=== PATIENT | female | born 2000 | race Caucasian/White ===

== ENCOUNTER 2019-01-17 17:47 | Emergency (ER) | payer BC ==
--- OUTSIDE RECORDS SUMMARY | 2019-01-17 17:49 | XMS REPORT | Summary of Care ---
:2000 Author Organization [facility] Address [address] [place] [phone] Encounter HQ Martine_ephraim(ESTEVAN) [id number] Date(s): 07/01/17 - 07/01/[address] Discharge Disposition: Home or Self Care Attending Physician: Yesenia Phoenix MD Referring Physician: Yesenia Phoenix MD Vital Signs Most recent to oldest [Reference Range]: 1 Blood Pressure [90-140/60-90 mmHg] 118/76 mmHg (07/01/17 1:20 PM) Respiratory Rate [14-20 BRMIN] 16 BRMIN (07/01/17 1:20 PM) Peripheral Pulse Rate [60-100 bpm] 93 bpm (07/01/17 1:20 PM) Weight 47.727 kg (07/01/17 1:20 PM) Problem List Condition Effective Dates Status Health Status Informant Cerebral palsy(Confirmed) Active Autism spectrum(Confirmed) Active Seizures(Confirmed) Active Stroke(Confirmed) Active Allergies, Adverse Reactions, Alerts Substance Reaction Severity Status NKDA Active Medications multivitamin 2 tabs, PO, Daily, 0 Refill(s) Start Date: 07/01/17 Status: Ordered Results No data available for this section Immunizations No data available for this section Procedures Procedure Date Related Diagnosis Body Site Creation of POLICE CHIEF DEPUTY shunt 1999 Craniotomy Social History Social History Type Response Substance Abuse Use: None. Sexual Sexually active: No. Exercise Exercise duration: 0. Employment/School Highest education level: Other.1 Alcohol Never Smoking Status Never smoker; Exposure to Tobacco Smoke None; Cigarette Smoking Last 365 Days No; Reg Smoking Cessation Counseling No 1patient still in school(special ED) Assessment and Plan No data available for this section
--- OUTSIDE RECORDS SUMMARY | 2019-01-17 17:49 | XMS REPORT | Continuity of Care Document ---
:2000 Author Organization Interface Problems Problem Status Onset Classification Date Comments Source Date Reported 6 MONTH FOLLOW Active [facility] UP 8 EAVL TRANSITION Active [facility] TO ADULT CLINIC 8 REFER BY Localization-re 03/11/2018 [facility] late (partial) [address] [place] [address] Center epilepsy and epileptic syndromes with complex partial seizures, intractable, without status epilepticus G40.[address] LOCAL-REL Active [address] S73.004A - Active [facility] UNSPECIFIED 7 [place] DISLOCATION OF RI F/U Active [facility] 7 6 MONTHS Active [facility] 7 EPILEPSY Active [address] Cerebral palsy Active Problem 03/11/2018 [facility], [facility], [facility] [place] Autism spectrum Active Problem 03/11/2018 [facility] Active Problem 03/11/2018 [facility], [facility], [facility] [place] Stroke Active Problem 03/11/2018 [facility], [facility], [facility] [place] LOCAL-REL Active [facility] SEIZ, Medications Medication Details Route Status Patient Ordering Order Source Instructions Provider Date FYCOMPA 4 mg, PO, Active 02/28[facility] Bedtime, 0 2017 Refill(s) norethindrone 0.35 mg=1 tab, Active 02/28/ [facility] 0.35 mg oral PO, Daily, # 30 2018 tablet tab, 0 Refill(s) multivitamin 2 tabs, PO, [facility] Refill(s) Ondansetron 4 mg, 2 mL, Inactive 02/01/ [facility] Route: IVP, Drug 2017 Medical form: INJ, ONCE, Center Dosing Weight 47.727, kg, PRN Nausea & Vomiting, Start date: 02/01/17 10:10:00 CDTNotes: (Same as: Zofran) MEDICATION WASTE Product Size: 4 mg Product Wasted: ___ mg Naloxone 0.4 mg, 1 mL, Inactive [facility] Route: IVP, Drug 2017 Medical form: INJ, Center Q2MIN, Dosing Weight 47.727, kg, PRN Narcotic Reversal, Start date: 02/01/17 10:10:00 CDT, Duration: 8 doses or times, Stop date: Limited # of timesNotes: Same as Narcan Flumazenil 0.2 mg, Route: Inactive [facility] IVP, PRN, Dosing 2017 Medical Weight 47.727, Center kg, PRN Benzodiazepine Reversal, Initial dose, Start date: 02/01/17 10:10:00 CDT, Duration: 30 day, Stop date: 03/03/17 10:09:00 CDT Hydromorphone 0.2 mg, Route: Inactive [facility] IVP, Q5Min, 2017 Medical Dosing Weight Center 47.727, kg, PRN Pain Score 7-10, Start date: 02/01/17 10:10:00 CDT, Duration: 4 doses or times, Stop date: Limited # of times Oxycodone 2.5 mg, 2.5 mL, Inactive [facility] Route: PO, Drug 2016 Medical form: LIQ, Q4H, Center Dosing Weight 47.727, kg, PRN Pain Score 4-6, Start date: 02/01/17 10:10:00 CDT, Duration: 30 day, Stop date: 03/03/17 10:09:00 CDTNotes: (Same as: 'Roxicodone) ketOROLAC IV, ONCE Inactive [facility] (ANES) 2017 [facility] Center ondansetron Route: IV, Drug Inactive [facility] (ANES) form: INJ, ONCE, 2017 Medical Stop date: [place] 02/01/17 9:58:00 CDT dexamethasone Route: IV, Drug Inactive [facility] (ANES) form: INJ, ONCE, 2017 Medical Stop date: [place] 02/01/17 8:43:00 CDT acetaminophen Route: IV, Drug Inactive [facility] (ANES) form: INJ, ONCE, 2016 Medical Stop date: [place] 02/01/17 8:38:00 CDT ceFAZolin Route: IV, Drug Inactive [facility] (ANES) form: INJ, ONCE, 2016 Medical Stop date: [place] 02/01/17 8:33:00 CDT propofol (ANES) Route: IV, Drug Inactive [facility] form: INJ, ONCE, 2016 Medical Stop date: [place] 02/01/17 8:23:00 CDT fentaNYL (ANES) Route: IV, Drug Inactive [facility] form: INJ, ONCE, 2016 Medical Stop date: [place] 02/01/17 8:23:00 CDT LR 1000 mL INJ Route: IV, Total Inactive [facility] (ANES) Volume: 1,000, 2016 Medical Start date: [place] 02/01/17 7:50:00 CDT, Stop date: 02/01/17 8:50:00 CDT ferrous sulfate PO, 0 Refill(s) Active [address] Allergies, Adverse Reactions, Alerts Substance Category Reaction Severity Reaction Status Date Comments Source type Reported Immunizations Immunization Date Given Site Status Last Updated Comments Source Results Order Results Value Reference Date Interpretation Comments Source Name Range Hip 2/3 Hip 2/3 Patient Name: NGUYỄN VOGEL [facility] views views uni 2017 - [place] uni DX DX : 1999; Age: 16 years Female MR: [id number] Read by: Clay Pack MD Dictated Date/time: 12/29/16 14:35 Electronically Signed by: Clay Pack MD 12/29/16 14:37 FINAL REPORT Study: Hip 2/3 views uni DX, Hip 2/3 views uni DX Order Time: 12/29/2016 2: 21 PM 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 The tip of the shunt can be seen terminating in the right pelvis. This may be the tip of a PUMP STATION OPERATOR shunt. The right and left femoral head are symmetric in contour and density. They are both well-seated in their respective acetabulum. No acute fracture or dislocation is identified. There is a large amount of stool in the rectum. IMPRESSION: No acute fracture or dislocation. 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 The tip of the shunt can be seen terminating in the right pelvis. This may be the tip of a PUMP STATION OPERATOR shunt. The right and left femoral head are symmetric in contour and density. They are both well-seated in their respective acetabulum. No acute fracture or dislocation is identified. There is a large amount of stool in the rectum. IMPRESSION: No acute fracture or dislocation. SL: WR1-M Vital Signs Vital Sign Value Date Comments Source BMI Calculated 19.23 02/28/2018 [facility] Weight 43.182 02/28/2018 [facility] Systolic (mm Hg) 98 02/28/2018 [facility] Diastolic (mm Hg) 56 02/28/2018 [facility] Height 149.86 cm 02/28/2018 [facility] Respitory Rate 18 02/28/2018 [facility] Heart Rate 86 02/28/2018 [facility] Systolic (mm Hg) 118 07/01/2017 [facility] Diastolic (mm Hg) 76 07/01/2017 [facility] Respitory Rate 16 07/01/2017 [facility] Heart Rate 93 07/01/2017 [facility] Weight 47.727 07/01/2017 [facility] Systolic (mm Hg) 102 02/01/2017 [facility] Center Diastolic (mm Hg) 59 02/01/2017 [facility] Respitory Rate 17 02/01/2017 [facility] Systolic (mm Hg) 100 02/01/2017 [facility] Diastolic (mm Hg) 58 02/01/2017 [facility] Respitory Rate 31 02/01/2017 [facility] Systolic (mm Hg) 101 02/01/2017 [facility] Diastolic (mm Hg) 56 02/01/2017 [facility] Respitory Rate 13 02/01/2017 [facility] Heart Rate 85 02/01/2017 [facility] BMI Calculated 22.39 02/01/2017 [facility] Weight 47.727 02/01/2017 [facility] Height 146 cm 01/28/2017 [facility] Encounters Location Location Encounter Encounter Reason Attending ADM DC Status Source Details Type Number For Provider Date Date Visit [facility] Outpatient [id number] [place] 12/22 12/23 [facility] Outpt Diag [id number] Glendaliyao 12/29 12/30 [facility] [place] [facility] Day Surgery [id number] Jay Jay 02/01 02/02 [facility] Outpatient [id number] Glendaliz 07/01 07/02 [facility] Outpatient [id number] Catalina 12/03 12/04 [facility] Outpatient [id number] Alyssa 02/28 03/01 [facility] Procedures Procedure Code Date Perfomer Comments Source Creation of PUMP STATION OPERATOR 13261128 1999 [facility] Creation of PUMP STATION OPERATOR [id number] 1999 [facility] shunt Creation of PUMP STATION OPERATOR [id number] 1999 [facility] shunt [place] Craniotomy [id number] [facility] Craniotomy [id number] [facility] Craniotomy 21985207 [facility] [place]
--- OUTSIDE RECORDS SUMMARY | 2019-01-17 17:50 | XMS REPORT | Summary of Care ---
:2000 Author Organization [facility] Address [address] [place] [id number] Encounter HQ Meganr_ephraim(FIN) [id number] Date(s): 12/03/17 - 12/03/[address] [address]- [place] Encounter Diagnosis Localization-related (focal) (partial) symptomatic epilepsy and epileptic syndromes with complex partial seizures, intractable, without status epilepticus (Final) - 12/07/17 Discharge Disposition: Home or Self Care Attending Physician: Catalina Alvarado MD Referring Physician: Catalina Alvarado MD Vital Signs No data available for this section Problem List Condition Effective Dates Status Health Status Informant Cerebral palsy(Confirmed) Active Autism spectrum(Confirmed) Active Seizures(Confirmed) Active Stroke(Confirmed) Active Allergies, Adverse Reactions, Alerts Substance Reaction Severity Status NKDA Active Medications No data available for this section Results No data available for this section Immunizations No data available for this section Procedures Procedure Date Related Diagnosis Body Site Status Creation of POWER AND RECOVERY SHIFT ENGINEER shunt 1999 Completed Craniotomy Completed Social History Social History Type Response Substance Abuse Use: None. Sexual Sexually active: No. Exercise Exercise duration: 0. Employment/School Highest education level: Other.1 Alcohol Never Smoking Status Never smoker; Previous treatment: None; Ready to change: No; Concerns about tobacco use in household: No; Exposure to Tobacco Smoke None; Cigarette Smoking Last 365 Days No; Reg Smoking Cessation Counseling Yes entered on: 02/28/18 1patient still in school(special ED) Assessment and Plan No data available for this section
--- OUTSIDE RECORDS SUMMARY | 2019-01-17 17:50 | XMS REPORT | Summary of Care ---
:2000 Author Name DOLLY EMERY M.D. Address Unavailable Unavailable , Care Team Providers Name Role Phone JACKSON PAYNE M.D., DOLLY Unavailable Unavailable ANDRY MASON M.D. Unavailable Unavailable YVETTE RANDHAWA MD Unavailable Unavailable Unavailable Unavailable Unavailable Functional Status Name Dates Details Functional status health issues are not documented Status: Name Dates Details Cognitive status health issues are not documented Status: Problems Name Dates Details Sleep disturbances (780.50, G47.9) Status: Active Anemia (285.9, D64.9) Status: Active Iron deficiency anemia (280.9, D50.9) Status: Active Status post VNS (vagus nerve stimulator) placement (V45.89, Z96.89) Status: Active History of urinary tract infection (V13.02, Z87.440) Status: Active Insomnia (780.52, G47.00) Status: Active Apnea (786.03, R06.81) Status: Active Gastroesophageal reflux (530.81, K21.9) Status: Active History of Depot contraception (V25.49, Z30.42) Status: Resolved Menstrual bleeding problem (626.9, N93.9) Status: Active Contraception (V25.9, Z30.9) Status: Active Seizures (780.39, R56.9) Status: Active Developmental delay (783.40, R62.50) Status: Active Non-smoker (V49.89, Z78.9) Status: Active Complex partial epilepsy, 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 Quantity: 30 Refills: 11 ANDRY MASON M.D. Start : 18-May-2016 Active Fycompa 4 MG Oral Tablet TAKE 1 TABLET DAILY Quantity: 30 Refills: 5 DOLLY EMERY M.D. Start : 27-Aug-2017 Active Briviact 25 MG Oral Tablet TAKE 1 TABLET TWICE DAILY Refills: 0 ORLIN EMERY M.D.EN Start : 25-Jul-2018 Active Allergies and Adverse Reactions Name Dates Details No Known Drug Allergies (Allergy) Status: Active Past Medical History Name Dates Details History of Apraxia (784.69, R48.2) Status: Resolved History of cerebral palsy (V12.49, Z86.69) Status: Resolved History of Delay of cognitive development (315.9, F81.9) Status: Resolved History of EP (epilepsy) (345.90, G40.909) Status: Resolved Procedures Procedure Dates Details History of Creation Of Ventriculo-Peritoneal CSF Shunt Completed Immunization Name Dates Details Immunizations not documented Family History Name Dates Details Family history unknown (V49.89, Z78.9) Status: Active Name Dates Details Family history unknown (V49.89, Z78.9) Status: Active Social History Name Dates Details - Status: Name Dates Details Never smoker Vital Signs Date Test Result Details [id number] BP Systolic 116 mm[Hg] Status: Comments: Location: LUE; Position: Sitting BP Diastolic 77 mm[Hg] Status: Comments: Location: LUE; Position: Sitting Height 149 cm Status: Physical Findings 1 Status: Comments: 2-20 Stature Percentile Weight 46.4 kg Status: Body Mass Index Calculated 20.9 kg/m2 Status: Body Surface Area Calculated 1.38 m2 Status: Physical Findings 5 Status: Comments: 2-20 Weight Percentile Physical Findings 40 Status: Comments: BMI Percentile Heart Rate 111 /min Status: Head Circumference 50.5 cm Status: Results Date Description Value Details Results not documented Plan of Care Name Dates Details Planned Observations Planned Goals not documented Interventions Provided Discussion/SummaryAraseli is a 18 year old girl with a history of intractable Epilepsy and ASD who presents for follow up visit. She is currently on Fycompa 4 ml qhs (11.6 mg/kg/day). Mom does not want to try any other medications or increase Fycompa due to increase in behavioral concerns. We referred her to psychiatry and she need to start seeing adult neurology.. Instructions Name Dates Details Instructions not documented Encounters Appointment; RHEA CURRIE M.D. On: 08-Feb-2017 10:00 Encounter Diagnosis: Problem not documented Appointment; RHEA CURRIE M.D. On: 15-Feb-2017 11:00 Encounter Diagnosis: Problem not documented Appointment; RHEA CURRIE M.D. On: 22-Feb-2017 9:30 Encounter Diagnosis: Problem not documented Appointment; RHEA CURRIE M.D. On: 08-Mar-2017 9:30 Encounter Diagnosis: Problem not documented Appointment; DOLLY EMERY M.D. On: 12-May-2017 15:00 Encounter Diagnosis: Problem not documented Appointment; DOLLY EMERY M.D. On: 24-May-2017 11:00 Encounter Diagnosis: Problem not documented Appointment; EDEN PAZ M.D. On: 27-May-2017 13:00 Encounter Diagnosis: Problem not documented Appointment; RAZIA VELAZQUEZ M.D. On: 04-Jun-2017 8:45 Encounter Diagnosis: Problem not documented Appointment; DOLLY EMERY M.D. On: 11-Aug-2017 15:00 Encounter Diagnosis: Problem not documented Appointment; EDEN PAZ M.D. On: 23-Aug-2017 13:00 Encounter Diagnosis: Problem not documented Appointment; EDEN PAZ M.D. On: 01-Nov-2017 13:30 Encounter Diagnosis: Problem not documented Appointment; DOLLY EMERY M.D. On: 17-Nov-2017 13:00 Encounter Diagnosis: Problem not documented Appointment; JEFE MANDEL M.D. On: 04-Jan-2018 14:00 Encounter Diagnosis: Problem not documented Appointment; KEO JOYCE M.D. On: 26-Jan-2018 12:30 Encounter Diagnosis: Problem not documented Appointment; DOLLY EMERY M.D. On: 16-Feb-2018 14:00 Encounter Diagnosis: Problem not documented Appointment; DOLLY EMERY M.D. On: 20-Jul-2018 14:00 Encounter Diagnosis: Problem not documented Appointment; FREEMAN FARAH M.D. On: 27-Oct-2018 13:00 Encounter Diagnosis: Problem not documented Appointment; DOLLY EMERY M.D. On: 11-Jan-2019 14:20 Encounter Diagnosis: Problem not documented
--- OUTSIDE RECORDS SUMMARY | 2019-01-17 17:50 | XMS REPORT | Summary of Care ---
:2000 Author Organization [facility] Address [address] [place] [id number] Encounter HQ Martine_ephraim(FIN) [id number] Date(s): 12/22/16 - 12/22/[address] Discharge Disposition: Home or Self Care Attending Physician: Yesenia Phoenix MD Referring Physician: Yesenia Phoenix MD Vital Signs No data available for this section Problem List Condition Effective Dates Status Health Status Informant Cerebral palsy(Confirmed) Resolved Autism spectrum(Confirmed) Active Seizures(Confirmed) Resolved Stroke(Confirmed) Resolved Allergies, Adverse Reactions, Alerts Substance Reaction Severity Status NKDA Active Medications No Known Medications Results No data available for this section Immunizations No data available for this section Procedures Procedure Date Related Diagnosis Body Site Creation of BOTTLE HOUSE QUALITY CONTROL TECHNICIAN shunt 2000 Craniotomy Social History Social History Type Response Substance Abuse Use: None. Sexual Sexually active: No. Exercise Exercise duration: 0. Employment/School Highest education level: Other.1 Alcohol Never Smoking Status Never smoker; Previous treatment: None; Ready to change: No; Concerns about tobacco use in household: No; Exposure to Tobacco Smoke None; Cigarette Smoking Last 365 Days No; Reg Smoking Cessation Counseling Yes 1patient still in school(special ED) Assessment and Plan No data available for this section
--- OUTSIDE RECORDS SUMMARY | 2019-01-17 17:50 | XMS REPORT | Summary of Care ---
:2000 Author Organization [facility] Address [address] [place], [place] [id number] Encounter HQ Martine_ephraim(ESTEVAN) [id number] Date(s): 02/28/18 - 02/28/[address] Discharge Disposition: Home or Self Care Attending Physician: Alyssa Lozano MD Referring Physician: Alyssa Lozano MD Vital Signs Most recent to oldest [Reference Range]: 1 Height 149.86 cm (02/28/18 10:27 AM) Blood Pressure [90-140/60-90 mmHg] 98/56 mmHg (02/28/18 10:27 AM) Respiratory Rate [14-20 BRMIN] 18 BRMIN (02/28/18 10:27 AM) Peripheral Pulse Rate [60-100 bpm] 86 bpm (02/28/18 10:27 AM) Weight 43.182 kg (02/28/18 10:27 AM) Body Mass Index 19.23 m2 (02/28/18 10:27 AM) Problem List Condition Effective Dates Status Health Status Informant Cerebral palsy(Confirmed) Active Autism spectrum(Confirmed) Active Seizures(Confirmed) Active Stroke(Confirmed) Active Allergies, Adverse Reactions, Alerts Substance Reaction Severity Status NKDA Active Medications Fycompa 4 mg, PO, Bedtime, 0 Refill(s) Start Date: 02/28/18 Status: Orderednorethindrone 0.35 mg oral tablet 0.35 mg=1 tab, PO, Daily, # 30 tab, 0 Refill(s) Start Date: 02/28/18 Status: Ordered Results No data available for this section Immunizations No data available for this section Procedures Procedure Date Related Diagnosis Body Site Status Creation of TREE TRIMMING SUPERVISOR shunt 1999 Completed Craniotomy Completed Social History [...]
--- OUTSIDE RECORDS SUMMARY | 2019-01-17 17:50 | XMS REPORT | Summary of Care ---
:2000 Author Organization [facility] Address [address], [place] [address]- Encounter HQ Cristal(ESTEVAN) [id number] Date(s): 02/01/17 - 02/01/[address] [address]- [place] Discharge Disposition: Home or Self Care Attending Physician: Jay Jay Cuevas MD Referring Physician: Jay Jay Cuevas MD Vital Signs Most recent to oldest 1 2 3 [Reference Range]: Height 146 cm (01/28/17 5:33 PM) Blood Pressure [90-140/60-90 102/59 mmHg 100/58 mmHg 101/56 mmHg mmHg] (02/01/17 12:00 PM) (02/01/17 11:45 AM) (02/01/17 11:30 AM) Respiratory Rate [14-20 17 BRMIN 31 BRMIN 13 BRMIN BRMIN] (02/01/17 12:00 PM) *HI* *LOW* (02/01/17 11:45 AM) (02/01/17 11:30 AM) Peripheral Pulse Rate 85 bpm [60-100 bpm] (02/01/17 6:13 AM) Weight 47.727 kg (02/01/17 6:12 AM) Body Mass Index 22.39 m2 (02/01/17 6:12 AM) Problem List Condition Effective Dates Status Health Status Informant Cerebral palsy(Confirmed) Active Autism spectrum(Confirmed) Active Seizures(Confirmed) Active Stroke(Confirmed) Active Allergies, Adverse Reactions, Alerts Substance Reaction Severity Status NKDA Active Medications acetaminophen (ANES) Route: IV, Drug form: INJ, ONCE, Stop date: 02/01/17 8:38:00 CDT Start Date: 02/01/17 Stop Date: 02/01/17 Status: CompletedANES flumazenil 0.2 mg, Route: IVP, PRN, Dosing Weight 47.727, kg, PRN Benzodiazepine Reversal, Initial dose, Start date: 02/01/17 10:10:00 CDT, Duration: 30 day, Stop date: 10:09:00 CDT Start Date: 02/01/17 Stop Date: 02/01/17 Status: DiscontinuedANES HYDROmorphone 0.2 mg, Route: IVP, Q5Min, Dosing Weight 47.727, kg, PRN Pain Score 7-10, Start date: 02/01/17 10:10:00 CDT, Duration: 4 doses or times, Stop date: Limited # of times Start Date: 02/01/17 Stop Date: 02/01/17 Status: DiscontinuedANES naloxone 0.4 mg, 1 mL, Route: IVP, Drug form: INJ, Q2MIN, Dosing Weight 47.727, kg, PRN Narcotic Reversal, Start date: 02/01/17 10:10:00 CDT, Duration: 8 doses or times , Stop date: Limited # of times Notes: Same as Narcan Start Date: 02/01/17 Stop Date: 02/01/17 Status: DiscontinuedANES ondansetron 4 mg, 2 mL, Route: IVP, Drug form: INJ, ONCE, Dosing Weight 47.727, kg, PRN Nausea & Vomiting, Start date: 02/01/17 10:10:00 CDT Notes: (Same as: Ian) MEDICATION WASTE Product Size: 4 mgProduct Wasted: ___ mg Start Date: 02/01/17 Stop Date: 02/01/17 Status: DiscontinuedANES oxyCODONE 2.5 mg, 2.5 mL, Route: PO, Drug form: LIQ, Q4H, Dosing Weight 47.727, kg, PRN Pain Score 4-6, Start date: 02/01/17 10:10:00 CDT, Duration: 30 day, Stop date: 03/03/17 10:09:00 CDT Notes: (Same as: 'Roxicodone) Start Date: 02/01/17 Stop Date: 02/01/17 Status: DiscontinuedceFAZolin (ANES) Route: IV, Drug form: INJ, ONCE, Stop date: 02/01/17 8:33:00 CDT Start Date: 02/01/17 Stop Date: 02/01/17 Status: Completeddexamethasone (ANES) Route: IV, Drug form: INJ, ONCE, Stop date: 02/01/17 8:43:00 CDT Start Date: 02/01/17 Stop Date: 02/01/17 Status: CompletedfentaNYL (ANES) Route: IV, Drug form: INJ, ONCE, Stop date: 02/01/17 8:23:00 CDT Start Date: 02/01/17 Stop Date: 02/01/17 Status: Completedferrous sulfate PO, 0 Refill(s) Start Date: 01/28/17 Status: OrderedketOROLAC (ANES) IV, ONCE Start Date: 02/01/17 Stop Date: 02/01/17 Status: CompletedLR 1000 mL INJ (ANES) Route: IV, Total Volume: 1,000, Start date: 02/01/17 7:50:00 CDT, Stop date: 08/10 8:50:00 CDT Start Date: 02/01/17 Stop Date: 02/01/17 Status: Completedondansetron (ANES) Route: IV, Drug form: INJ, ONCE, Stop date: 02/01/17 9:58:00 CDT Start Date: 02/01/17 Stop Date: 02/01/17 Status: Completedpropofol (ANES) Route: IV, Drug form: INJ, ONCE, Stop date: 02/01/17 8:23:00 CDT Start Date: 02/01/17 Stop Date: 02/01/17 Status: Completed Results No data available for this section Immunizations No data available for this section Procedures Procedure Date Related Diagnosis Body Site Creation of BUDDER shunt 2000 Craniotomy Social History Social History [...] still in school(special ED) Assessment and Plan Extracted from: Title: Clinical Document Author: Brittany Patel Date: 02/01/17 Pediatric Neurosurgery Discharge Summary Admit Date: 02/01/17 Admit Diagnosis: epilepsy Discharge Date: 02/01/17 Discharge Diagnosis: epilepsy Araseli is a 17 year old female with a past medical history significant for in -utero stroke, right sided hemiparesis, hydrocephalus, and intractable epilepsy who underwent a vagal nerve stimulator. Erin vickers tolerated the procedure well. She will be discharged home today, after the procedure and is to follow up with Dr. Alvarado in 1 week. We will examine her at that time as well. Discharge medications: May alternative over the counter tylenol and motrin as needed as per label for pain. Diet: Regular Wound Care: She may remove the dressing in tomorrow (02/02/17), but is to leave the steri strips in place. Pk to wendy incision with water and mild soap once outer dressing is removed on 02/02. Do not put lotions or ointments on incision. Call [phone] if increased swelling or signs of infection. Follow up: Follow up in clinic with Dr. Alvarado in 1 week. Extracted from: Title: Clinical Document Author: Brittany Patel Date: 02/01/17 Patient: Araseli Vogel Date of Procedure: 02/01/17 Pre-Procedure Diagnosis: epilepsy Post Procedure Diagnosis: same Procedure: Vagal nerve stimulator placement Surgeon: Dr. Cuevas Brim Blocker(s): Brittany Patel PA-C Anesthesia: General Estimated Blood Loss: 1 ml Findings: none Specimens: none Complications: None. Patient Condition: Stable. I was present for and first-assisted Dr. Cuevas throughout the entire operation. There was no qualified neurosurgical resident available for the entirety of the case.
--- OUTSIDE RECORDS SUMMARY | 2019-01-17 17:50 | XMS REPORT | Summary of Care ---
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
--- NOTE | 2019-01-17 21:30 | ER ---
Nurse's Notes [facility] [place] Name: Araseli Taylor Age: 19 yrs Sex: Female : 2000 Arrival Date: 01/17/2019 Time: 17:49 Bed 9 Private MD: Lalit José W Diagnosis: Presentation: 01/17 18:10 Presenting complaint: Mother states: she had a seizure, about 4:30 pm, and fell out of the bed; and cut the skin on top of her L eye brow; denies LOC:. Transition of care: patient was not received from another setting of care. Onset of symptoms was January 17, 2019. Risk Assessment: Do you want to hurt yourself or someone else? Patient reports no desire to harm self or others. Initial Sepsis Screen: Does the patient meet any 2 criteria? No. Patient's initial sepsis screen is negative. Does the patient have a suspected source of infection? No. Patient's initial sepsis screen is negative. Care prior to arrival: None. 18:10 Method Of Arrival: Ambulatory 18:10 Acuity: TITA 4 18:13 Mechanism of Injury: Fall out of bed. Trauma event details: Injury occurred in the [facility], Injury occurred: at home. Injury occurred: January 17, 2019 Injury occurred at: 16:30. Triage Assessment: 18:12 General: Appears in no apparent distress. uncomfortable, Behavior is fussy. Pain: Unable to use pain scale. Patient is a pre-verbal child. Trauma Activation: Not Applicable Physician: ED Physician; Name: ; Notified At: ; Arrived At: Physician: General Surgeon; Name: ; Notified At: ; Arrived At: Physician: Radiology; Name: ; Notified At: ; Arrived At: Physician: Respiratory; Name: ; Notified At: ; Arrived At: Physician: Lab; Name: ; Notified At: ; Arrived At: Historical: - Allergies: 18:12 No Known Allergies; hj - Home Meds: 18:12 Fycompa 4 mg oral tab 1 tab once daily [Active]; - PMHx: 18:12 Seizures; - PSHx: 18:12 shunt; brain; vagal nerve stimulator; - Immunization history:: Adult Immunizations up to date. - Social history:: Smoking status: Patient/guardian denies using tobacco, Patient/guardian denies using alcohol. - Immunization history: Last tetanus immunization: unknown. - Ebola Screening: : Patient negative for fever greater than or equal to 101.5 degrees Fahrenheit, and additional compatible Ebola Virus Disease symptoms Patient denies exposure to infectious person Patient denies travel to an Ebola-affected area in the 21 days before illness onset. Screenin:15 Abuse screen: Denies threats or abuse. Denies injuries from another. Nutritional rr5 screening: No deficits noted. Tuberculosis screening: No symptoms or risk factors identified. Fall Risk Fall in past 12 months (25 points). Secondary diagnosis (15 points) seizures, Total Cristobal Fall Scale indicates Low Risk Score (25-44 pts). Fall prevention measures have been instituted. Side Rails Up X 2 Placed close to Nursing Station Frequent Obs/Assesments occuring Family Present and informed to notify staff if they need to leave bedside As available Patient and Family Educated on Fall Prevention Program and strategies. Primary Survey: 19:10 NO uncontrolled hemorrhage observed. rr5 19:10 A: The patient is alert. Airway: patent. Breathing/Chest: Respiratory pattern: regular, rr5 Respiratory effort: spontaneous, unlabored. Circulation: Cardiac rhythm: sinus rhythm Pulses: palpable right radial artery. Disability Alert. Exposure/Environment:. Exposure/Environment: Obvious injury(ies) are noted at this time: cut wound at left upper eyebrow, abrasion at right knee noted. 20:10 Reassessment Airway Airway Patent Breathing/Chest Respiratory pattern Regular rr5 Respiratory effort Spontaneous Unlabored Circulation Heart rhythm Sinus rhythm Pulses Palpable. 20:10 Reassessment Disability Alert. rr5 Secondary Survey: 19:10 HEENT: Eyes: Other upper left eyebrow cut. Gastrointestinal: No deficits noted. : No rr5 deficits noted. Musculoskeletal: abrasion wound at right knee. Injury Description: Laceration sustained to left eyebrow and right knee abrasion is. Assessment: 19:15 General: Appears in no apparent distress. comfortable, Behavior is calm, cooperative. rr5 Pain: Complains of pain in left eyebrow Pain does not radiate. Quality of pain is described as aching, Pain began gradually, Is intermittent. Neuro: Level of Consciousness is awake, alert, obeys commands, Oriented to Reports city superintendent reports seizure episode. Cardiovascular: Capillary refill < 3 seconds Patient's skin is warm and dry. Respiratory: Airway is patent Respiratory effort is even, unlabored, Respiratory pattern is regular, symmetrical. GI: No signs and/or symptoms were reported involving the gastrointestinal system. : No signs and/or symptoms were reported regarding the genitourinary system. EENT: No signs and/or symptoms were reported regarding the EENT system. Derm: Wound noted left eyebrow and abrasion to knee. 19:15 Musculoskeletal: Capillary refill < 3 seconds. rr5 19:30 Reassessment: no complaints made. seizure precaution applied. rr5 19:40 Reassessment: Patient appears in no apparent distress at this time. Patient is alert, rr5 oriented x 3, equal unlabored respirations, skin warm/dry/pink. side rail pads applied, family member at bedisde.seizure precaution observed. 20:10 Reassessment: Patient appears in no apparent distress at this time. no seizure activity rr5 noted. awaiting for provider. 20:40 Reassessment: follow up to ED provider for the plan with order to wound cleaning and rr5 steri strip application. 21:10 Reassessment: Patient appears in no apparent distress at this time. Mother reports they aa1 are leaving because they have been waiting in the room for over 2 hours and the provider has not been back in to talk to them or follow up with pt. Provider notified that family is upset and wants to leave and reports that he will be back in to see them shortly but mother reports that they do not wish to stay any longer and are going to leave. 21:10 Reassessment: patient's city superintendent wants to be discharge now and wants talk to superior, rr5 Charge nurse spoke to her. Vital Signs: 18:13 BP 105 / 82; Pulse 100; Resp 18; Temp 97.8(O); Pulse Ox 100% on R/A; Weight 46.27 kg; Height 4 ft. 10 in. (147.32 cm); 19:15 BP 113 / 71; Pulse 81; Resp 17; Temp 99.6; Pulse Ox 98% ; rr5 18:13 Body Mass Index 21.32 (46.27 kg, 147.32 cm) [place] Coma Score: 18:13 Eye Response: spontaneous(4). Verbal Response: oriented(5). Motor Response: obeys hj commands(6). Total: 15. Trauma Score (Adult): 18:13 Eye Response: spontaneous(1); Verbal Response: oriented(1); Motor Response: obeys hj commands(2); Systolic BP: > 89 mm Hg(4); Respiratory Rate: 10 to 29 per min(4); [place] Score: 15; Trauma Score: 12 ED Course: 17:49 Patient arrived in ED. rg4 17:49 Lalit José MD is Private Physician. rg4 18:11 Triage completed. hj 19:10 Patient maintains SpO2 saturation greater than 95% on room air. rr5 19:10 Thermoregulation: warm blanket given to patient. rr5 19:10 Arm band placed on left wrist. rr5 19:10 Patient has correct armband on for positive identification. Bed in low position. Side rr5 rails up X2. Seizure precautions initiated. 19:18 He Denton PA is PHCP. [facility] 19:18 Ahmet Chapman MD is Attending Physician. [facility] 19:32 Franklyn Farrell RN is Primary Nurse. rr5 20:40 Wound care: to laceration located on left eyebrow was cleaned with dressed with steri rr5 strip, Patient tolerated well. 21:20 Patient did not have IV access during this emergency room visit. aa1 21:28 No provider procedures requiring assistance completed. aa1 Administered Medications: No medications were administered Intake: 21:00 PO: 0ml; Total: 0ml. rr5 Output: 21:00 Urine: 0ml; Total: 0ml. rr5 Outcome: 21:20 Eloped from patient exam room, after seeing physician aa1 21:20 Condition: stable 21:29 Patient left the ED. aa1 Signatures: Ewa Marin RN RN aa1 He Denton PA PA [facility] Panchito Stapleton RN RN hj Garcia, Rubi 4 Franklyn Farrell RN RN rr5 Corrections: (The following items were deleted from the chart) 18:17 18:13 Pulse 100bpm; Resp 18bpm; Pulse Ox 100% RA; Temp 97.8F Oral; 46.27 kg; Height 4 hj ft. 10 in.; BMI: 21.3; hj
[2019-01-17 22:44] VITALS: BP 113/71; TEMP 99.6; O2SAT 98
--- NOTE | 2019-01-18 21:42 | EDPHYS ---
Physician Documentation [facility] Name: Araseli Taylor Age: 19 yrs Sex: Female : 2000 Arrival Date: 01/17/2019 Time: 17:49 Bed 9 Private MD: Lalit José W ED Physician Ahmet Chapman HPI: 01/17 19:51 This 19 yrs old Female presents to ER via Ambulatory with complaints of Fall jmm Injury, Laceration To Forehead. 19:51 Details of fall: The patient fell from a supine position. Onset: The symptoms/episode jmm began/occurred acutely, just prior to arrival. Associated injuries: The patient sustained injury to the head, laceration. This is a 19 year old female with a history of frequent seizures that presents to the ED with a laceration to her forehead. Family states the patient fell out of bed hitting a chair. Denies LOC but states the patient had seizure activity after the event. Family was sent from urgent care. Patient is currently at baseline according to family. Historical: - Allergies: 18:12 No Known Allergies; hj - Home Meds: 18:12 Fycompa 4 mg oral tab 1 tab once daily [Active]; hj - PMHx: 18:12 Seizures; hj - PSHx: 18:12 shunt; brain; vagal nerve stimulator; hj - Immunization history:: Adult Immunizations up to date. - Social history:: Smoking status: Patient/guardian denies using tobacco, Patient/guardian denies using alcohol. - Immunization history: Last tetanus immunization: unknown. - Ebola Screening: : Patient negative for fever greater than or equal to 101.5 degrees Fahrenheit, and additional compatible Ebola Virus Disease symptoms Patient denies exposure to infectious person Patient denies travel to an Ebola-affected area in the 21 days before illness onset. ROS: 19:51 Constitutional: Negative for fever, chills, and weight loss, Respiratory: Negative for jmm shortness of breath, cough, wheezing, and pleuritic chest pain. 19:51 Neuro: Positive for seizure activity. 19:51 All other systems are negative. Exam: 19:51 Eyes: EOMI, no conjunctival erythema appreciated Chest/axilla: Normal chest wall jmm appearance and motion. Cardiovascular: Regular rate and rhythm. No edema appreciated Respiratory: Normal respirations, no respiratory distress appreciated Abdomen/GI: Non distended, soft Back: Normal ROM 19:51 Constitutional: The patient appears in no acute distress, alert, awake. 19:51 Head/face: superficial laceration noted to the left side of the forehead. no battles signs appreciated, no raccoon eyes appreciated. 19:51 Musculoskeletal/extremity: ROM: intact in all extremities. 19:51 Skin: superficial laceration noted. 19:51 Neuro: Motor: is normal. Vital Signs: 18:13 BP 105 / 82; Pulse 100; Resp 18; Temp 97.8(O); Pulse Ox 100% on R/A; Weight 46.27 kg; hj Height 4 ft. 10 in. (147.32 cm); 19:15 BP 113 / 71; Pulse 81; Resp 17; Temp 99.6; Pulse Ox 98% ; rr5 18:13 Body Mass Index 21.32 (46.27 kg, 147.32 cm) Za Coma Score: 18:13 Eye Response: spontaneous(4). Verbal Response: oriented(5). Motor Response: obeys hj commands(6). Total: 15. Trauma Score (Adult): 18:13 Eye Response: spontaneous(1); Verbal Response: oriented(1); Motor Response: obeys hj commands(2); Systolic BP: > 89 mm Hg(4); Respiratory Rate: 10 to 29 per min(4); Za Score: 15; Trauma Score: 12 MDM: 19:51 Patient medically screened. [facility] 19:51 Data reviewed: vital signs, nurses notes. ED course: Laceration is superficial and self [facility] approximates. Wound was cleaned and steristrips applied. Family left prior to reevaluation against medical advise. Diagnosis: Seizure, head injury, forehead laceration. Administered Medications: No medications were administered Disposition: 01/18 00:06 Co-signature as Attending Physician, Ahmet Chapman MD. cortez Disposition: 01/17/19 21:29 Patient left the facility after being seen by provider. - Patient left due to (see nurse's notes). - Condition is Stable. Signatures: Ewa Marin RN RN aa1 Ahmet Chapman MD MD pkl Mickail, Joel, PA PA [facility] Pieter, Panchito, RN RN hj Farrell, Franklyn, RN RN rr5 Corrections: (The following items were deleted from the chart) 01/17 23:20 19:51 Data reviewed: vital signs, nurses notes, tyra mary : 19:51 ED course: Laceration is superficial and self approximates. Wound was cleaned and tyra steristrips applied. Family left prior to reevaluation against medical advise. . tyra
== END 2019-01-17 21:29 | disposition left against medical advice (07) ==
LOC: ER 17:47
DX: S01.81XA Laceration without foreign body of other part of head, initial encounter (principal); W06.XXXA Fall from bed, initial encounter; W22.8XXA Striking against or struck by other objects, initial encounter; R56.9 Unspecified convulsions; Z53.29 Procedure and treatment not carried out because of patient's decision for other reasons
CPT/HCPCS: 99284